=== PATIENT | male | born 1975 | race Caucasian/White ===

== ENCOUNTER 2017-01-18 19:00 | Emergency (ER) | payer OTHER ==
[2017-01-18 19:50] LABS: BASOPHIL % 1.4 % (0-2); PLATELET COUNT 249 x10^3mcL (130-400); RED CELL DISTRIBUTION WIDTH 14.4 % (11.5-14.5)
[2017-01-18 19:58] LABS: CALCIUM 7.6 mg/dL (8.5-10.1); CARBON DIOXIDE 21.7 mmol/L (21-32); CHLORIDE SERUM 114 mmol/L (98-107); CREATININE SERUM 0.9 mg/dL (0.7-1.3); GFR1 > 60 mL/min; GLUCOSE SERUM 115 mg/dL (74-106); SODIUM SERUM 148 mmol/L (136-145)
[2017-01-18 20:02] LABS: ALBUMIN 3.4 g/dL (3.4-5.0); ALKALINE PHOSPHATASE 58 U/L (46-116); ALT/SGPT 26 U/L (16-63); AST/SGOT 18 U/L (15-37); CHOLESTEROL 142 mg/dL (<200)
[2017-01-18 20:03] LABS: TOTAL PROTEIN, SERUM 6.1 g/dL (6.4-8.2)
[2017-01-19 01:07] VITALS: BP 114/74
== END 2017-01-19 01:07 | disposition home or self-care (01) ==
LOC: ED 19:00
PROVIDERS: Specialist
DX: F10.129 Alcohol abuse with intoxication, unspecified (principal); R42 Dizziness and giddiness; F32.1 Major depressive disorder, single episode, moderate; Z59.0 Homelessness
CPT/HCPCS: 83880; G0480; J3411; J3475; J3490; J7030; Q0092

== ENCOUNTER 2019-02-07 13:16 | Emergency (ER) | payer OTHER ==
[~2019-02-07] VITALS: Ht 172.7 cm; Wt 74.8 kg
[2019-02-07 13:22] VITALS: BP 95/50; Ht 172.7 cm; Wt 74.8 kg
== END 2019-02-07 15:40 | disposition home or self-care (01) ==
LOC: ED 13:16
DX: Z02.89 Encounter for other administrative examinations (principal)

== ENCOUNTER 2020-03-07 08:00 | Inpatient (IN) | payer OTHER ==
[~2020-03-07] VITALS: Ht 177.8 cm; Wt 62.3 kg
--- NOTE | 2020-03-07 08:15 | NUR ---
DR BOTELLO AT BEDSIDE FOR MSE
--- NOTE | 2020-03-07 08:20 | NUR ---
PT C/O TESTICULAR PAIN AND BURNING, URGENCY, FREQUENCY SINCE TUESDAY. PAIN 4/10 DURING ASSESSMENT. AAO X 4, VSS, ABLE TO MAKE NEEDS KNOWN AND AMBULATE ON HIS OWN. DENIES SOB, CHEST PAIN. PT ALSO HAVING GENERALIZED ABDOMINAL PAIN THAT IS INTERMITENT. DENIES ANY INJURY.
[2020-03-07 08:42] LABS: BASOPHIL % 0.6 % (0-2); PLATELET COUNT 282 x10^3mcL (130-400); RED CELL DISTRIBUTION WIDTH 13.9 % (11.5-14.5)
[2020-03-07 09:10] LABS: CALCIUM 8.7 mg/dL (8.5-10.1); CARBON DIOXIDE 26.5 mmol/L (21-32); CHLORIDE SERUM 96 mmol/L (98-107); CREATININE SERUM 1.2 mg/dL (0.7-1.3); GFR1 > 60 mL/min; GLUCOSE SERUM 150 mg/dL (74-106); POTASSIUM SERUM 3.9 mmol/L (3.5-5.1); SODIUM SERUM 129 mmol/L (136-145)
[2020-03-07 09:14] LABS: ALKALINE PHOSPHATASE 88 U/L (46-116); ALT/SGPT 32 U/L (16-63); AST/SGOT 25 U/L (15-37); BILIRUBIN TOTAL 0.5 mg/dL (0.20-1.00); LIPASE 66 IU/L (73-393); TOTAL PROTEIN, SERUM 7.1 g/dL (6.4-8.2)
[2020-03-07 09:17] LABS: ALBUMIN 2.9 g/dL (3.4-5.0)
[2020-03-07 09:19] LABS: UA SPECIFIC GRAVITY 1.025 (1.005-1.035); microscopic required? YES; urine erythrocyte 3+ (NEGATIVE)
--- NOTE | 2020-03-07 09:49 | NUR ---
PT AWAITING LAB RESULTS, LAYING IN BED, NO DISTRESS NOTED. DENIES PAIN AT THIS TIME, TORADOL EFFECTIVE IN PAIN MANAGEMENT. ALL NEEDS MET AT THIS TIME. WILL CONITNUE TO MONITOR, CALL LIGHT WITHIN REACH
--- NOTE | 2020-03-07 10:20 | NUR ---
PT RECEIVING ULTRASOUND AT BEDSIDE
--- NOTE | 2020-03-07 10:28 | NUR ---
PT AWAITING BLOOD CULTURES, WAITING TO ADMINISTER ROCEPHIN AFTER LAB DRAW.
--- NOTE | 2020-03-07 11:11 | NUR ---
PATIENT LAYING IN BED, REQUESTS LIGHTS TO BE TURNED OFF TO REST, VSS, NO DISTRESS NOTED. UPDATED PT ON POC, DENIES ANY PAIN AT THIS TIME. WILL CONTINUE TO MONITOR
[2020-03-07 11:20] LABS: MAGNESIUM 2.2 mg/dL (1.8-2.4); PHOSPHOROUS 2.8 mg/dL (2.5-4.9)
[2020-03-07 11:22] LABS: CHOLESTEROL/HDL RATIO 3.2; T3 TOTAL 1.03 ng/mL
[2020-03-07 11:23] LABS: FREE T4 1.35 ng/dL (0.76-1.46); FREE THYROXINE INDEX 2.9 ug/dL (1.4-4.5); T4(THYROXINE) 7.5 ug/dL (4.7-13.3)
--- NOTE | 2020-03-07 12:28 | NUR ---
BP 95/41 AFTER [address] BOTELLO AWARE AND NO ACTION NEEDED AT THIS TIME. PT DENIES DIZZINESS
--- NOTE | 2020-03-07 12:32 | NUR ---
PT URINATED 150 ML IN URINAL, REPORTS DECREASED PAIN WITH URINATION. DENIES PAIN AT THIS TIME. ALL NEES CURRWENTLY MET, PT LAYING IN BED, IN AND OUT OF SLEEP. VSS, NO DISTRESS AT THIS TIME. MARKUS LIGHT WITHIN REACH WILL CONT TO MONITOR
--- NOTE | 2020-03-07 13:57 | NUR ---
PT SLEEPING, SLEPT THROUGH VITAL SIGNS. APPEARS COMFORTABLE AT THIS TIME. CALL LIGHT WITHIN REACH
--- NOTE | 2020-03-07 15:02 | NUR ---
RECEIVED PT FROM [facility] [employer], CAME IN DUE TO RIGHT GROIN PAIN AND BLOOD IN THE URINE X1 DAY. AAOX4. C/O MILD DIZZINESS. ABLE TO FOLLOW COMMANDS. SPEECH IS CLEAR. NO SOB NOTED, LUNG SOUNDS CTA. DENIES CHEST PAIN/PRESSURE, SR ON THE MONITOR. DENIES ABDOMINAL PAIN/NAUSEA/VOMITING. ABDOMEN IS SOFT. RIGHT SCROTAL EDEMA NOTED, DENIES DYSURIA AND BLOOD IN THE URINE AT THIS TIME. C/O 5/10 ACHING PAIN ON THE RIGHT TESTICLE. ABLE TO MOVE ALL EXTREMITIES. IV SITE PATENT AND INTACT. SIDE RAILS UPX2. CALL LIGHT ON REACH. WILL ENDORSE TO PRIMARY NURSE JANAK FOR CONTINUITY OF CARE
[2020-03-07 15:15] VITALS: BP 94/60
[2020-03-07 15:22] VITALS: Ht 177.8 cm; Wt 62.3 kg
--- NOTE | 2020-03-07 16:02 | NUR ---
RESTING IN BED NOW IN NO ACUTE DISTRESS. NO C/O PAIN OR DISCOMFORT. IVF INFUSING WELL.CALL LIGHT WITHIN REACH. WILL CONTINUE WITH PLAN OF CARE.
[2020-03-07 17:12] VITALS: BP 119/80
--- NOTE | 2020-03-07 18:42 | NUR ---
PT EATING DINNER, NO DISTRESS NOTED. NO C/O ABD. DISCOMFORT. VS REMAINS WNL. IVF INFUSING WELL AND SITE CLEAR. CALL LIGHT WITHIN REACH. WILL CONTINUE WITH PLAN OF CARE.
--- NOTE | 2020-03-07 19:24 | NUR ---
RECEIVED PT FROM AM NURSE. PT AWAKE AND ALERT, A/O X4, COOPERATIVE TO CARE. NO RESP DISTRESS NOTED, BREATHING EVEN AND UNLABORED. PT DENIES CP/PRESSURE AT THIS TIME. ALL SAFETY PRECAUTIONS IN PLACE. WILL CONTINUE TO MONITOR.
[2020-03-07 19:55] VITALS: BP 95/55
--- NOTE | 2020-03-07 23:46 | NUR ---
pt has his eyes closed, no s/s of pain and sob noted
--- NOTE | 2020-03-08 01:06 | NUR ---
PT IS RESTING, EASILY AROUSABLE. NO RESP DISTRESS NOTED, BREATHING EVEN AND UNLABORED. NO SIGNS OF CP/PRESSURE AT THIS TIME.
[2020-03-08 04:42] VITALS: BP 113/74; BP 94/52
--- NOTE | 2020-03-08 05:38 | NUR ---
PT SLEPT THROUGH THE NIGHT. NO ACUTE DISTRESS NOTED, BREATHING EVEN AND UNLABORED. NO SIGNS OF CP/PRESSURE AT THIS TIME. IV TO LAC INFUSING NS AT 150ML/HR, SITE CDI. PT VOIDS VIA URINAL. ALL NEEDS ATTENDED TO AND MET OVERNIGHT. ALL SAFETY PRECAUTIONS IN PLACE. WILL ENDORSE CARE TO AM NURSE.
[2020-03-08 06:59] LABS: BASOPHIL % 0.1 % (0-2); PLATELET COUNT 244 x10^3mcL (130-400)
--- NOTE | 2020-03-08 07:11 | NUR ---
ENDORSED ALL CARE TO MIGEL BRICENO. ALL QUESTIONS AND CONCERNS ANSWERED.
[2020-03-08 07:25] LABS: CALCIUM 7.7 mg/dL (8.5-10.1); CARBON DIOXIDE 22.6 mmol/L (21-32); CHLORIDE SERUM 102 mmol/L (98-107); CREATININE SERUM 0.8 mg/dL (0.7-1.3); GFR1 > 60 mL/min; GLUCOSE SERUM 100 mg/dL (74-106); POTASSIUM SERUM 4.1 mmol/L (3.5-5.1); SODIUM SERUM 131 mmol/L (136-145)
--- NOTE | 2020-03-08 07:26 | NUR ---
RECEIVED IN NO ACUTE DISTRESS. AWAKE ALERT AND ORIENTED. VS STABLE,IVF INFUSING WELL AND SITE CLEAR. NO C/O PAIN OR DISCOMFORT AT THIS TIME. PT VOIDING WELL AND NO DYSURIA OR HEMATURIA REPORTED. TOLERATING WELL WITH MEALS, NO N/V NOR ABD. DISCOMFORT.CALL LIGHT WITHIN REACH. WILL CONTINUE WITH PLAN OF CARE.
[2020-03-08 08:35] VITALS: BP 91/53
--- NOTE | 2020-03-08 09:00 | NUR ---
NP. RYAN MADE AWARE OF BLOOD CULTURE RESULT.
[2020-03-08 12:30] VITALS: BP 106/59
--- NOTE | 2020-03-08 16:13 | NUR ---
PT SLEEPING AT THIS TIME. NO ACUTE DISTRESS NOTED.
[2020-03-08 16:56] VITALS: BP 99/62
--- NOTE | 2020-03-08 17:13 | NUR ---
BLADDER SCANNER DONE POST VOID AND THERE WAS 63ML. PT VOIDING OK, DENIES DYSURIA AND NO HEMATURIA NOTED. CLEAR YELLOW URINE NOTED.
--- NOTE | 2020-03-08 18:40 | NUR ---
PT REMAINS IN NO ACUTE DISTRESS. AWAKE AND ALERT. NO CHANGES IN VS. NO C/O PAIN AT THIS TIME. IVF INFUSING WELL AND SITE CLEAR. CALL LIGHT WITHIN REACH. WILL BE ENDORSED TO INCOMING SHIFT.
--- NOTE | 2020-03-08 19:59 | NUR ---
RECEIVED PT FROM AM NURSE. PT RESTING IN BED, A/O X4. NO RESP DISTRESS NOTED, BREATHING EVEN AND UNLABORED. TELE #31, NSR [id number], PT DENIES CP/PRESSURE. IV TO LAC CDI, INFUSING NS @150 ML/HR. ALL SAFETY PRECAUTIONS IN PLACE. WILL CONT TO MONITOR.
[2020-03-08 20:12] VITALS: BP 96/63
--- NOTE | 2020-03-09 01:01 | NUR ---
PT IS SLEEPING. NO RESP DISTRESS NOTED, BREATHING EVEN AND UNLABORED. NO SIGNS OF ANY PAIN AT THIS TIME. TELE 31, SR HR 61. ALL SAFETY PRECAUTIONS IN PLACE. WILL CONTINUE TO MONITOR.
[2020-03-09 05:26] VITALS: BP 108/76
--- NOTE | 2020-03-09 06:30 | NUR ---
PT SLEPT THROUGH THE NIGHT. NO ACUTE RESP DISTRESS NOTED, BREATHING EVEN AND UNLABORED. NO SIGNS OF CP/PRESSURE AT THIS TIME, NSR HR 61 ON TELE #31. IV TO LAC INFUSING WELL, SITE CLEAN AND DRY. ALL NEEDS MET OVERNIGHT. WILL ENDORSE ALL CARE TO AM NURSE.
[2020-03-09 06:58] LABS: BASOPHIL % 0.3 % (0-2); PLATELET COUNT 305 x10^3mcL (130-400); RED CELL DISTRIBUTION WIDTH 14.1 % (11.5-14.5)
[2020-03-09 07:17] LABS: CALCIUM 8.3 mg/dL (8.5-10.1); CARBON DIOXIDE 25.7 mmol/L (21-32); CHLORIDE SERUM 103 mmol/L (98-107); CREATININE SERUM 0.7 mg/dL (0.7-1.3); GFR1 > 60 mL/min; GLUCOSE SERUM 99 mg/dL (74-106); MAGNESIUM 1.8 mg/dL (1.8-2.4); POTASSIUM SERUM 4.1 mmol/L (3.5-5.1); SODIUM SERUM 138 mmol/L (136-145)
--- NOTE | 2020-03-09 07:46 | NUR ---
RECEIVED IN NO ACUTE DISTRESS. AWAKE AND ALERT. NO C/O PAIN OR DISCOMFORT. VS WNL. IVF INFUSING WELL AND SITE WITH NO S/S OF INFILTRATION. CALL LIGHT WITHIN REACH. WILL CONTINUE WITH PLAN OF CARE.
[2020-03-09 08:40] VITALS: BP 109/63
[2020-03-09 12:24] VITALS: BP 103/58
[2020-03-09 16:29] VITALS: BP 99/71
--- NOTE | 2020-03-09 16:38 | NUR ---
RESTING IN BED, NO ACUTE DISTRESS NOTED. NO C/O PAIN OR DISCOMFORT.
--- NOTE | 2020-03-09 18:31 | NUR ---
PT REMAINS IN NO DISTRESS, RESTING AT THIS TIME. NO C/O PAIN OR DISCOMFORT. VOIDING ADEQUATELY, CLEAR YELLOW URINE. DENIES DYSURIA AT THIS TIME. IVF INFUSING WELL AND NEW SITE IS PATENT. VS REMAINS WNL. CALL LIGHT WITHIN REACH. WILL BE ENDORSED TO INCOMING SHIFT.
--- NOTE | 2020-03-09 19:55 | NUR ---
RECEIVED PT FROM AM NURSE. PT IS SLEEPING. NO ACUTE RESP DISTRESS NOTED, BREATHING EVEN AND UNLABORED. NO SIGNS OF ANY PAIN AT THIS TIME. IV TO LH INFUSING WELL, SITE CLEAN AND DRY. ALL SAFETY PRECAUTIONS IN PLACE. WILL CONT TO MONITOR.
[2020-03-09 20:22] VITALS: BP 104/50
[2020-03-10 05:30] VITALS: BP 114/76
--- NOTE | 2020-03-10 06:26 | NUR ---
PT IS SLEEPING. NO ACUTE RESP DISTRESS NOTED, BREATHING EVEN AND UNLABORED. NO SIGNS OF CP/PRESSURE AT THIS TIME. IV TO LFA INFUSING WELL, SITE CLEAN AND DRY. ALL SAFETY PRECAUTIONS IN PLACE. WILL ENDORSE ALL CARE TO AM NURSE.
[2020-03-10 07:01] LABS: BASOPHIL % 0.5 % (0-2); RED CELL DISTRIBUTION WIDTH 14.5 % (11.5-14.5)
[2020-03-10 07:07] LABS: CALCIUM 8.7 mg/dL (8.5-10.1); CARBON DIOXIDE 30.9 mmol/L (21-32); CHLORIDE SERUM 102 mmol/L (98-107); CREATININE SERUM 0.8 mg/dL (0.7-1.3); GFR1 > 60 mL/min; GLUCOSE SERUM 83 mg/dL (74-106); POTASSIUM SERUM 4.3 mmol/L (3.5-5.1); SODIUM SERUM 138 mmol/L (136-145)
--- NOTE | 2020-03-10 07:10 | NUR ---
RECEIVED PT ROM NIGHT RN. AAOX4. NO ACUTE DISTRESS NOTED. RES E/U, DENIES SOB ON RA. TELE MONITOR 31 SHOWING SR, DENIES CP/PRESSURE. AMBULATORY. IV SITE TO LAC INFUSING NS, CDI AND PATENT. DENIES PAIN/DISCOMFORT AT THIS TIME. PT REPORTS SCROTAL SWELLING HAS DECREASED. VOIDING IN URINAL W NO COMPLAINTS. SAFETY PRECAUTIONS IN PLACE
[2020-03-10 07:15] LABS: PLATELET COUNT 401 x10^3mcL (130-400)
[2020-03-10 08:17] VITALS: BP 119/71
[2020-03-10] MEDS ORDERED: CIPRO500 MG PO (11:37)
[2020-03-10] MEDS ORDERED: TOR10 PO (13:14)
[2020-03-10 13:59] VITALS: BP 117/72
[2020-03-10 14:06] VITALS: BP 117/72
--- NOTE | 2020-03-10 14:37 | NUR ---
PRINTED AND EXPLAINED DISCHARGE INSTRUCTIONS TO PATIENT. DISCHARGE INSTRUCTIONS INCLUDE FOLLOW UP WITH APPOINTMENT, MEDICATIONS, AND PRESCRIPTIONS. ALL NEEDS MET AND CONCERNS ADDRESSED. TELE MONITOR REMOVED. IV SITE TO L HAND REMOVED AND IV CATHETER INTACT. [facility] [employer].
== END 2020-03-10 14:34 | disposition home or self-care (01) | DRG 463 ==
LOC: ED 08:00 → DU 10:41 → MU 03-10 11:38
PROVIDERS: Emergency Medicine; ADMIT Family Medicine; ATTEND Family Medicine
DX: N12 Tubulo-interstitial nephritis, not specified as acute or chronic (principal); F12.20 Cannabis dependence, uncomplicated; Z20.828 Contact with and (suspected) exposure to other viral communicable diseases; N45.3 Epididymo-orchitis; F17.210 Nicotine dependence, cigarettes, uncomplicated; F32.9 Major depressive disorder, single episode, unspecified; Z60.2 Problems related to living alone; N43.2 Other hydrocele; N45.1 Epididymitis
CPT/HCPCS: 84439; 99406; G0378; J0696; J1885; J3370; J3490; J7030; J7060; Q0092